=== PATIENT | female | born 1965 | race Caucasian/White ===

== ENCOUNTER 2019-10-04 14:29 | Emergency (ER) | payer BC ==
[2019-10-04 15:02] VITALS: BP 147/86
--- NOTE | 2019-10-04 15:49 | UC ---
Respiratory Complaint HPI - HPI Summary HPI Summary: Pt states she had a bad cold and cough for 2 months which improved but never really went totally away and one week ago symptoms worsened again. Pt states her cough las night was "soupy" with white sputum. No fever. She is cutting down on her smoking using a patch. No SOB now but felt SOB last night. States she had to sleep sitting up. Occasional ankle and foot swelling but not today. States she occasionally will feel a skipped heartbeat but not regularly. No chest pain. - History of Current Complaint Chief Complaint: UCGeneralIllness Stated Complaint: COUGH,CONGESTION Time Seen by Provider: 10/04/19 14:59 Hx Obtained From: Patient ?: No Onset/Duration: Gradual Onset, Lasting Weeks Timing: Intermittent Episodes Severity Initially: Mild Severity Currently: Mild Pain Intensity: 5 Character: Cough: Productive Aggravating Factors: Recumbent Position Alleviating Factors: Upright Position Associated Signs And Symptoms: Positive: Dyspnea - Dyspnea at night, URI, Nasal Congestion - Allergies/Home Medications Allergies/Adverse Reactions: Allergies Allergy/AdvReac Type Severity Reaction Status Date / Time epinephrine Allergy See Comment Verified 10/04/19 15:03 Penicillins Allergy Hallucinati Verified 10/04/19 15:03 ons Sulfa (Sulfonamide Allergy Hives Verified 10/04/19 15:03 Antibiotics) Home Medications: Home Medications Phenylephrine/Dm/Acetaminop/GG [Tylenol Cold-Flu Severe Caplet] 1 each PO DAILY PRN 10/04/19 [History Confirmed 10/04/19] PMH/Surg Hx/FS Hx/Imm Hx Previously Healthy: Yes - Surgical History Surgery Procedure, Year, and Place: gall bladder removed. hysterectomy - Family History Known Family History: Positive: Non-Contributory - Social History Lives: With Family Alcohol Use: None Substance Use Type: None Smoking Status (MU): Light Every Day Tobacco Smoker Amount Used/How Often: 1/2ppd Review of Systems All Other Systems Reviewed And Are Negative: Yes ENT: Positive: Nasal Discharge Respiratory: Positive: Cough Cardiovascular: Positive: Other - Occasional skipped beat but nothing frequent. She says sometimes she'll get a little dizzy when she has that. Is Patient Immunocompromised?: No Physical Exam Triage Information Reviewed: Yes Appearance: Well-Appearing, No Pain Distress, Well-Nourished Vital Signs: Initial Vital Signs Temp 98.7 F 10/04/19 14:54 Pulse 84 10/04/19 14:54 Resp 18 10/04/19 14:54 BP 147/86 10/04/19 14:54 Pulse Ox 97 10/04/19 14:54 Vital Signs Reviewed: Yes Eyes: Positive: Conjunctiva Clear ENT: Positive: Hearing grossly normal, Pharynx normal, TMs normal, Uvula midline Neck: Positive: Supple, Nontender, No Lymphadenopathy Respiratory: Positive: Lungs clear, Normal breath sounds, No respiratory distress, No accessory muscle use Cardiovascular: Positive: RRR, No Murmur, Pulses Normal, Brisk Capillary Refill Abdomen Description: Positive: Nontender, No Organomegaly, Soft. Negative: CVA Tenderness (R), CVA Tenderness (L), Hepatomegaly, Splenomegaly Bowel Sounds: Positive: Present Musculoskeletal Exam: Normal Musculoskeletal: Positive: Strength Intact, ROM Intact, No Edema Neurological: Positive: Alert, Muscle Tone Normal Psychological Exam: Normal Psychological: Positive: Normal Response To Family Skin Exam: Normal Respiratory Course/Dx - Course Course Of Treatment: CXR:FINDINGS: CARDIOMEDIASTINAL SILHOUETTE: The cardiomediastinal silhouette is normal. CHERRIE: The cherrie are normal. PLEURA: The costophrenic angles are sharp. No pleural abnormalities are noted. LUNG PARENCHYMA: The lungs are clear. ABDOMEN: The upper abdomen is clear. There is no subphrenic gas. BONES AND SOFT TISSUES: There is a scoliotic curvature of the spine. Degenerative changes are noted. OTHER: None. IMPRESSION: NO ACTIVE CARDIOPULMONARY DISEASE. At this time she is to continue cutting down on smoking. I am giving her an albuterol inhaler to use 2 puffs every 4 hours while awake over the next few days. I don't think she needs Prednisone at this time nor an antibiotic. Definite follow up with PCP in 3-4 days if no improvement and I advised her to make an appointment with a publication designer for further concerns regarding her feeling as if she has a skipped heartbeat. - Differential Dx/Diagnosis Provider Diagnosis: Bronchitis Discharge ED - Sign-Out/Discharge Documenting (check all that apply): Patient Departure All imaging exams completed and their final reports reviewed: Yes - Discharge Plan Condition: Good Disposition: HOME Prescriptions: Albuterol HFA INHALER* [Ventolin HFA Inhaler*] 2 puff INH Q4H PRN 5 Days #1 mdi PRN Reason: Wheezing Patient Education Materials: Acute Bronchitis (ED) Referrals: [facility] [Outside] No Primary Care Phys,NOPCP [Primary Care Provider] - Additional Instructions: increase fluids, Follow up with your primary care provider in 3-4 days if no improvement. Follow up with the publication designer for further investigation of your irregular heart beats. - Billing Disposition and Condition Condition: GOOD Disposition: Home - Attestation Statements Provider Attestation: Per institutional requirements, I have reviewed the chart, however, I was not consulted specifically or made aware of this patient by the midlevel provider. I did not personally evaluate, interact with , or disposition this patient.
== END 2019-10-04 16:45 | disposition home or self-care (01) ==
LOC: UCCORT 14:29
DX: J40 Bronchitis, not specified as acute or chronic (principal); R06.00 Dyspnea, unspecified; Z88.0 Allergy status to penicillin; Z88.2 Allergy status to sulfonamides; F17.210 Nicotine dependence, cigarettes, uncomplicated
CPT/HCPCS: 71046; 99202; G0463